=== PATIENT | male | born 1985 | race African-American/Black ===

== ENCOUNTER 2019-02-23 22:20 | Emergency (ER) | payer SELFPAY ==
[~2019-02-23] VITALS: Ht 167.6 cm; Wt 63.5 kg
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
[2019-02-23 22:28] VITALS: BP 110/75
--- NOTE | 2019-02-23 22:34 | NUR ---
ED Nurse Note: Clean wound with NS and pat dry.
[2019-02-23] MEDS ORDERED: Tetanus/Diptheria/Pertussis IM ONE (22:45)
--- NOTE | 2019-02-23 23:28 | NUR ---
ED Nurse Note: Applied topical meds and cover dressing.
[2019-02-23 23:30] VITALS: BP 123/79
[2019-02-23] MEDS ORDERED: Bacitracin Oint UD TOPIC ONE (23:30)
[2019-02-23 23:31] VITALS: BP 123/79
--- NOTE | 2019-02-23 23:31 | NUR ---
ER DISCHARGE NOTE: Patient is cleared to be discharged per ERMD, pt is aox4, on room air, with stable vital signs. pt was given dc and prescription instructions, pt was able to verbalize understanding, pt id band removed without complications. pt is able to ambulate with steady gait. pt took all belongings.
[2019-02-23] MEDS ORDERED: BACITRACIN15 GM TOPIC (23:34)
[2019-02-23] MEDS ORDERED: IBUPROFEN600 MG ORAL (23:34)
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
== END 2019-02-23 23:31 | disposition home or self-care (01) ==
LOC: EDBD 22:20 → EMR 22:50
DX: S51.812A Laceration without foreign body of left forearm, initial encounter (principal); Z23 Encounter for immunization; Y09 Assault by unspecified means; Z91.010 Allergy to peanuts
CPT/HCPCS: 90471; 90715; 99283

== ENCOUNTER 2019-03-04 17:28 | Emergency (ER) | payer SELFPAY ==
[~2019-03-04] VITALS: Ht 175.3 cm; Wt 63.5 kg
[~2019-03-04 17:28] MED LIST: BACITRACIN15 GM TOPIC; IBUPROFEN600 MG ORAL
[2019-03-04 17:43] VITALS: BP 144/92
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
--- NOTE | 2019-03-04 18:20 | Emergency Room Report ---
History of Present Illness General Chief Complaint: Wound Recheck/Suture Removal Source: Patient Present Illness HPI 33 YO Male here for suture removal of sutures placed 02/23/19 on the Left forearm . He reports 7/10 in severity tenderness. He reports some erythema and discharge from the wound. He states that he is UTD with vaccinations including tetanus. No other complaints at this time. Allergies: Uncoded Allergies: PEANUTS (Allergy, Unknown, 02/23/19) Patient History Past Medical History: see triage record Past Surgical History: none Pertinent Family History: none Immunizations: UTD Reviewed Nursing Documentation: PMH: Agreed; PSxH: Agreed Nursing Documentation-PMH Past Medical History: No Stated History Review of Systems All Other Systems: negative except mentioned in HPI Physical Exam Vital Signs Date Time Temp Pulse Resp B/P (MAP) Pulse Ox O2 Delivery O2 Flow Rate FiO2 03/04/19 17:43 99.3 97 16 144/92 (109) 97 Room Air Sp02 EP Interpretation: reviewed, normal General Appearance: no apparent distress, alert, GCS 15, non-toxic Head: normocephalic, atraumatic Eyes: bilateral eye normal inspection, bilateral eye PERRL ENT: hearing grossly normal, normal voice Neck: full range of motion Respiratory: lungs clear, normal breath sounds, speaking full sentences Cardiovascular #1: regular rate, rhythm, normal capillary refill Cardiovascular #2: 2+ radial (L) Musculoskeletal: back normal, gait/station normal, normal range of motion, non- tender Neurologic: alert, oriented x3, responsive, motor strength/tone normal, sensory intact, speech normal, grossly normal Psychiatric: judgement/insight normal Skin: other - erythema, warmth and some d/c noted at the suture line of left forearm laceration. the medial edge is clean and appears approximated. length is 2cm with 5 inturrupted sutures noted. Lymphatic: no adenopathy Medical Decision Making PA Attestation Dr. Patino is my supervising Physician whom patient management has been discussed with. Diagnostic Impression: Primary Impression: Cellulitis Qualified Codes: L03.114 - Cellulitis of left upper limb Additional Impression: Encounter for removal of sutures ER Course 33 YO Male here for suture removal of sutures placed 02/23/19 on the right forearm . Denies pain, erythema, discharge. Is UTD with vaccinations including tetanus. No other complaints at this time. Ddx considered but are not limited to laceration, tendon injury, cellulitis, dehiscence. Vital signs: are WNL, pt. is afebrile H&PE are most consistent with: Healing laceration of the Left forearm with a mild secondary wound infection/cellulitis. ORDERS: none required at this time, the diagnosis is clinical ED INTERVENTIONS: - Sutures removed- there was very minimal dehiscence. the laceration remained well approximated. -Topical Abx and wound care/dressing applied -Left wrist Splint applied by endo tech. Pt. remains neurovascularly intact. DISCHARGE: At this time pt. is stable for d/c to home. Will provide printed patient care instructions, and any necessary prescriptions. Care plan and follow up instructions have been discussed with the patient prior to discharge. Last Vital Signs Date Time Temp Pulse Resp B/P (MAP) Pulse Ox O2 Delivery O2 Flow Rate FiO2 03/04/19 17:43 99.3 97 16 144/92 97 Room Air Disposition: HOME, SELF-CARE Condition: Stable Scripts Bacitracin/Polymyxin B Sulfate (BACITRACIN-POLYMYXIN OINTMENT) 28.35 Gm Oint...g. 1 APPLIC TP BID, #28.3 GM Prov: Reba Burr 03/04/19 Trimethoprim/Sulfamethoxazole 160/800* (BACTRIM DS TABLET*) 1 Each Tablet 1 TAB ORAL TWICE A DAY for 7 Days, #14 TAB Prov: Reba Burr 03/04/19 Cephalexin* (KEFLEX*) 500 Mg Capsule 500 MG ORAL EVERY 12 HOURS for 7 Days, #14 CAP 0 Refills Prov: Reba Burr 03/04/19 Patient Instructions: Suture Removal, Care After, Wound Infection, [id number] Additional Instructions: Take medications as directed. Follow up with a Primary Care Provider in 3-5 days, even if your symptoms have resolved. --Please review list of primary care clinics, if you do not already have a primary care provider Return sooner to ED if new symptoms occur, or current symptoms become worse. - Please note that this Emergency Department Report was dictated using [employer] quality assurance analyst technology software, occasionally this can lead to erroneous entry secondary to interpretation by the dictation equipment. Reba Burr Mar 04, 2019 18:20
[2019-03-04] MEDS ORDERED: Neosporin Oint Ud Pkt TOPIC ONE (18:45)
[2019-03-04] MEDS ORDERED: BACITRACIN-P28.35 GM TP (18:46)
[2019-03-04] MEDS ORDERED: BACTRIM DS TAB1 EAC1 ORAL (18:46)
[2019-03-04] MEDS ORDERED: CEPHALEXIN500 MG ORAL (18:46)
[2019-03-04 19:05] VITALS: BP 144/92
--- NOTE | 2019-03-04 19:06 | NUR ---
ER DISCHARGE NOTE: Patient is cleared to be discharged per LIZ ESTRADA pt is aox4, on room air, with stable vital signs. pt was given dc and prescription instructions, pt was able to verbalize understanding, pt id band removed without complications. pt is able to ambulate with steady gait. pt took all belongings. dressing and splint applied as ordered by BENNY
== END 2019-03-04 19:04 | disposition home or self-care (01) ==
LOC: EMR 19:00
DX: L03.114 Cellulitis of left upper limb (principal); Z48.02 Encounter for removal of sutures; Z91.010 Allergy to peanuts
CPT/HCPCS: 29125; 99282